=== PATIENT | male | born 1990 | race African-American/Black ===

== ENCOUNTER 2019-12-15 18:19 | Emergency (ER) | payer OTHER ==
[~2019-12-15] VITALS: Ht 175.3 cm; Wt 65.0 kg
[2019-12-15 20:50] VITALS: BP 127/70
== END 2019-12-15 20:56 | DRG 605 ==
LOC: ED 18:19
DX: S00.03XA Contusion of scalp, initial encounter (principal); S16.1XXA Strain of muscle, fascia and tendon at neck level, initial encounter; G40.909 Epilepsy, unspecified, not intractable, without status epilepticus; W06.XXXA Fall from bed, initial encounter; Y92.143 Cell of prison as the place of occurrence of the external cause